=== PATIENT | female | born 2000 | race Caucasian/White ===

== ENCOUNTER 2022-01-28 22:20 | Emergency (ER) | payer BC, OTHER ==
[2022-01-28] MEDS ORDERED: Boostrix 0.5 ML (Tdap) VIAL ONE (22:57)
[2022-01-28] MEDS ORDERED: Bacitracin 1 PK ONE (22:59)
== END 2022-01-28 23:11 | disposition home or self-care (01) ==
LOC: ERS 22:20
DX: S61.212A Laceration without foreign body of right middle finger without damage to nail, initial encounter (principal); W25.XXXA Contact with sharp glass, initial encounter; Z23 Encounter for immunization
CPT/HCPCS: 90471; 90715; 99282

== ENCOUNTER 2022-03-17 16:07 | Emergency (ER) | payer BC, SELFPAY | END 2022-03-17 18:10 | disposition home or self-care (01) | LOC: ERS 16:07 | DX: H72.91 Unspecified perforation of tympanic membrane, right ear (principal); H66.91 Otitis media, unspecified, right ear | CPT/HCPCS: 99282 ==